=== PATIENT | female | born 1990 | race Caucasian/White ===

== ENCOUNTER 2024-09-17 08:57 | Emergency (ER) | payer OTHER, SELFPAY ==
[2024-09-17 09:06] VITALS: BP 144/95
--- NOTE | 2024-09-17 09:20 | ED.GENMED ---
History of Present Illness
General
Chief Complaint: Headache
Time Seen by Provider: 09/17/24 09:20
History of Present Illness
History of Present Illness:
TIME OF INITIAL ENCOUNTER: 9:30 AM
HPI: The patient presents due to 3 months of stabbing pain inside of the right ear that radiates into the head. She has no neurologic dysfunction. She had been taking ibuprofen and then PMD placed on naproxen. She denies fevers but had a
sensation of 'feeling warm inside'. Although she appears fairly comfortable, she describes 10 out of 10 pain. She states that when she had a similar episode a few years ago, this was successfully treated with amoxicillin. She was placed back on
amoxicillin recently but there has been no improvement at that time.
EXAM:
GENERAL: Well appearing in no distress
HEENT: Moist oral mucosa, bilateral TMs are normal, no pain at the right tragus, no pain at the right mastoid, no drainage from the right ear canal
CARDIOVASCULAR: No murmurs, normal heart rate, regular rhythm, No chest wall tenderness
PULMONARY: No respiratory distress, breath sounds are clear and equal
ABDOMEN: Soft with no peritoneal signs, no tenderness
NEUROLOGIC: Excellent strength all extremities, no coordination deficits
PSYCHIATRIC: Appropriate mental status, normal insight and judgement
EXTREMITIES: Nontender, no edema, moves all extremities equally
SKIN: No rash, no lesions
NUMBER AND COMPLEXITY OF PROBLEMS ADDRESSED AT THE ENCOUNTER
� Chronic conditions affecting care: History of anemia, former smoker, questionable seizure disorder as a child
� Acute Exacerbation and/or Progression of Chronic Illness: This is an acute problem
� Differential Diagnosis includes: Nonspecific headache, tension headache, migraine headache unlikely as is been going on for 3 months and there is no photophobia, intracranial mass
AMOUNT AND/OR COMPLEXITY OF DATA TO BE REVIEWED AND ANALYZED
� I performed an independent evaluation of and my interpretation is:
EKG:
CT: CT imaging personally reviewed and I agree with the energy management specialist interpretation there is no acute abnormality
X-rays:
Laboratory Studies:
Other:
� Review of other/old records: I reviewed [facility], no evidence of neuroimaging in the past
� Clinical information was obtained by an independent historian: None needed
� Prescriptions/Medications Considered but not given:
� Further testing considered but not performed:
RISK OF COMPLICATIONS AND/OR MORBIDITY OR MORTALITY OF PATIENT MANAGEMENT
� Social determinants of health affecting care: Lives at home
� Discussion with other providers:
� Escalation of care including admission/observation vs risk of discharge considered: Patient very concerned of the ongoing pain for 3 months. It is constant.
ANY OTHER UPDATES:
10 AM: I reassessed patient. CT imaging reassuring. Although she reports 10 out of 10 pain, she appears very comfortable. She feels comfortable with going home. Recommend ENT follow-up as the pain is primarily localized to the right ear however
right ear examination is unremarkable.
Past History
Past History
ED Past Medical History: Other (abscesses with I&D in the past, acne); Negative Asthma, HTN, Hypercholesterolemia or NIDDM
ED Past Surgical History:
Social History
Tobacco: Smoker
Alcohol: None
Personal: Single
Living: with family
Employment: Not employed
Phy Exam
Physical Exam
Physical Exam:
See HPI
Course
Orders/Labs/Results
Orders:
Orders
09/17/24 09:31
CT Head W/o Iv Contrast Urgent
Comment:
Reason For Exam: severe R NICHOLS; hcg not needed
Acetaminophen [Tylenol] 1,000 mg PO NOW STA
Vital Signs
Initial and Last Documented VS:
Initial Vital Signs
Temp Pulse Resp BP Pulse Ox
37.1 C 109 18 144/95 99
09/17/24 09:06 09/17/24 09:06 09/17/24 09:06 09/17/24 09:06 09/17/24 09:06
Last Documented Vital Signs
Temp Pulse Resp BP Pulse Ox
37.1 C 109 18 142/83 96
09/17/24 09:06 09/17/24 09:06 09/17/24 09:06 09/17/24 09:51 09/17/24 09:52
*Critical Care Note
Total Time (30-74mins, 75-104mins- exclusive of procedures): Not Applicable
ED Attending Note
-
Portions of this chart may have been created with voice recognition software.� Occasional wrong word or��sound alike� substitutions may have occurred due to the inherent limitations of voice recognition software.
Discharge Plan
Departure
Patient Disposition: Home (Routine Discharge)
Date of Disposition: 09/17/24
Time of Disposition: 10:04
Patient with high blood pressure during this ER visit?: Yes
Discharge Problem:
Headache
Instructions: Headache, Adult (DC), BLOOD PRESSURE
Prescriptions:
No Action
Vitamin 1 EACH tablet
1 tab PO DAILY
acetaminophen 325 mg Tablet
650 mg PO Q4HPRN PRN (Reason: mild pain) Qty: 30 0RF
ibuprofen 600 mg Tablet
600 mg PO Q6HPRN PRN (Reason: cramps) Qty: 30 0RF
Referrals:
Ernesto Gerardo MD [Active] - Follow up in 2-3 days
Activity Restrictions/Additional Instructions:
The cause of your symptoms is unclear. CAT scan of the brain shows no acute abnormality. You can take Tylenol in addition to NSAIDs. Since your pain is primarily located at the ear, I have given you the contact information for local ENT doctor to
follow-up with as well.
Interventions
Interventions:
*Risk Screen - Suicide Last Done: 09/17/24 09:06
*General Assessment Last Done: 09/17/24 09:47
*Neglect/Abuse Screening Last Done: 09/17/24 09:06
ED- Fall Risk Assessment Last Done: 09/17/24 09:23
*ED COVID-19 Vaccine History Last Done: 09/17/24 09:06
ED- Neurological Assessment Last Done: 09/17/24 09:23
Discharge Date and Time
Print Language: SAMI
[2024-09-17] MEDS: TYLENOL 1000 MG PO (09:50)
[2024-09-17 09:51] VITALS: BP 142/83
== END 2024-09-17 10:50 | disposition home or self-care (01) ==
LOC: EMR 08:57
PROVIDERS: EMERGENCY PHYSICIAN Emergency Medicine; FAMILY PHYSICIAN Family Medicine
DX: R51.9 Headache, unspecified (principal); F17.200 Nicotine dependence, unspecified, uncomplicated
CPT/HCPCS: 99284; 70450

== ENCOUNTER → 2025-03-15 09:16 | Outpatient (REF) | payer OTHER, SELFPAY | LOC: PNTC 09:16 | PROVIDERS: ATTENDING PHYSICIAN Obstetrics & Gynecology | DX: Z36.0 Encounter for antenatal screening for chromosomal anomalies (principal); Z36.82 Encounter for antenatal screening for nuchal translucency | CPT/HCPCS: 76801; 76817 ==

== ENCOUNTER → 2025-03-17 12:40 | Outpatient (REF) | payer OTHER, SELFPAY | LOC: PNTC 12:40 | PROVIDERS: ATTENDING PHYSICIAN Student in an Organized Health Care Education/Training Program | DX: O02.1 Missed abortion (principal) | CPT/HCPCS: 36415; 86850; 86900; 86901; 96372; J2790 ==